=== PATIENT | female | born 1965 | race Caucasian/White ===

== ENCOUNTER → 2016-05-11 | Outpatient (CLI) | payer OTHER ==
[~2016-05-11] MED LIST: AMT24 PO; ATOR-54 PO; BECL1AER5 NAE; CLB100 PO; LEVO5TAB2 PO; MULT-663 PO; NXM/40 PO; TOPI100T20 PO
--- NOTE | 2016-05-11 09:34 | DIAGNOSTIC IMAGING REPORT ---
CERVICAL SPINE 6 VIEWS HISTORY: Pain BREAST CANCER ?ABNORMALITY IN THE CSP INE C2 ON ... COMPARISON: None. FINDINGS: Mild straightening of the normal cervical curvature. There is no fracture. No subluxation. Minimal degenerative disc change C5-C6 Prevertebral soft tissues and the atlantodens interval are intact. No abnormality at the C1-C2 complex. IMPRESSION: Minimal degenerative change. Mild muscle spasm. No abnormality identified at C1-C2 complex Electronically signed by: Crsipin Bahena M.D. 05/11/2016 9:32 AM Dictated Date/Time: 05/11/2016 9:30 AM
--- NOTE | 2016-05-11 09:39 | DIAGNOSTIC IMAGING REPORT ---
LUMBAR SPINE 5 VIEWS HISTORY: Back pain. BREAST CANCER ? ABNORMALITY IN CSP INE COMPARISON: Abdomen and pelvis CT 10/05/2006. FINDINGS: There is no fracture. No subluxation. Disc spaces are preserved. S1 is noted to be a transitional vertebra. No suspicious lytic or blastic osseous lesions within the lumbar spine. Stable 6 mm sclerotic focus within the left iliac wing likely represents a bone island given the long-term stability. Minimal dextroscoliosis IMPRESSION: No fracture or subluxation within the lumbar spine. Minimal dextroscoliosis. Electronically signed by: Mario Laird M.D. 05/11/2016 9:37 AM Dictated Date/Time: 05/11/2016 9:31 AM
--- NOTE | 2016-05-11 09:42 | DIAGNOSTIC IMAGING REPORT ---
THORACIC SPINE 3 VIEWS ROUTINE CLINICAL HISTORY: Breast cancer. Abnormality in the cervical spine. COMPARISON STUDY: PET/CT June 05, 2007. FINDINGS: There is mild leftward curvature of the thoracic spine. Vertebral body heights are maintained. No fracture or osseous lesion is identified within the thoracic spine by radiography. A calcified left upper lobe granuloma is incidentally noted. There are left breast surgical clips. Mild multilevel degenerative disc disease is present. IMPRESSION: 1. No thoracic spine fracture or osseous lesion identified by radiography. 2. Mild multilevel degenerative disc disease of the thoracic spine. Electronically signed by: Grupo Dhillon M.D. 05/11/2016 9:40 AM Dictated Date/Time: 05/11/2016 9:35 AM
== END | disposition home or self-care (01) ==
LOC: C.RAD 08:24
PROVIDERS: ATTEND Nurse Practitioner Family
DX: C50.919 Malignant neoplasm of unspecified site of unspecified female breast (principal)

== ENCOUNTER → 2016-08-04 | Outpatient (CLI) | payer OTHER ==
[~2016-08-04] MED LIST changes: +LEVO-371 PO; -LEVO5TAB2 PO
--- NOTE | 2016-08-04 15:22 | MAMMOGRAPHY REPORT ---
UNILATERAL RIGHT DIGITAL SCREENING MAMMOGRAM TOMOSYNTHESIS WITH CAD: 08/04/2016 CLINICAL HISTORY: Asymptomatic. Personal history of breast cancer. TECHNIQUE: Breast tomosynthesis in addition to standard 2D mammography was performed. Current study was also evaluated with a Computer Aided Detection (CAD) system. Right CC and MLO 2D and tomosynthes is images were obtained. COMPARISON: Comparison is made to exams dated: 08/02/2015 mammogram, 07/10/2014 mammogram, 07/09/2013 dheeraj mogram, 06/27/2012 mammogram, 09/12/2011 mammogram, and 09/09/2010 mammogram - [facility] BREAST COMPOSITION: There are scattered areas of fibroglandular density in the right breast. FINDINGS: No suspicious masses, calcifications, or areas of architectural distortion are noted within the right breast. There has been no significant interval change compared to prior exams. IMPRESSION: ACR BI-RADS CATEGORY 1: NEGATIVE There is no mammographic evidence of malignancy. A 1 year screening mammogram is recommended. The pa tient will receive written notification of the results. Approximately 10% of breast cancers are not detected with mammography. A negative mammographic report should not delay biopsy if a clinically suggestive mass is present. Linda Alicea M.D. ah/:08/04/2016 12:25:18 Hospital Security Officer: Crissy SCRUGGS(Kiana)(M), [facility] letter sent: Normal 1/2 BI-RADS Code: ACR BI-RADS Category 1: Negative
== END | disposition home or self-care (01) ==
LOC: C.MAMM 09:56
PROVIDERS: ATTEND Obstetrics & Gynecology
DX: Z12.31 Encounter for screening mammogram for malignant neoplasm of breast (principal); Z85.3 Personal history of malignant neoplasm of breast; Z90.12 Acquired absence of left breast and nipple

== ENCOUNTER → 2016-11-08 | Outpatient (CLI) | payer OTHER ==
[2016-11-08 09:30] LABS: BASO % 0.2 %; BASO ABS # 0.02 K/uL (0-0.2); COMPLETE YES; EOS % 8.4 %; HEMATOCRIT 39.2 % (37-47); IG% 0.2 %; LYMPH % 36.2 %; LYMPH ABS # 3.07 K/uL (1.2-3.4); MEAN CORPUSCULAR HEMOGLOBIN 30.2 pg (25-34); MEAN CORPUSCULAR HGB CONC 33.2 g/dl (32-36); MEAN PLATELET VOLUME 10.2 fL (7.4-10.4); MONO % 5.7 %; NEUT % 49.3 %; PLATELET COUNT 281 K/uL (130-400); RED BLOOD COUNT 4.31 M/uL (4.2-5.4); WHITE BLOOD COUNT 8.48 K/uL (4.8-10.8)
[2016-11-08 09:52] LABS: ALT/SGPT 34 U/L (12-78); AST/SGOT 19 U/L (15-37); BLOOD UREA NITROGEN 13 mg/dl (7-18); BUN/CREATININE RATIO 12.1 (10-20); CALCIUM 9.6 mg/dl (8.5-10.1); CARBON DIOXIDE 27 mmol/L (21-32); CHLORIDE 106 mmol/L (98-107); CHOLESTEROL 186 mg/dl (0-200); GLUCOSE 105 mg/dl (70-99); MAGNESIUM 2.1 mg/dl (1.8-2.4); POTASSIUM 3.7 mmol/L (3.5-5.1); SODIUM 143 mmol/L (136-145)
[2016-11-08 09:56] LABS: ALKALINE PHOSPHATASE 153 U/L (45-117); HDL CHOLESTEROL 46 mg/dl; LDL CHOLESTEROL CALCULATED 92 mg/dl; TRIGLYCERIDES 240 mg/dl (0-150); VERY LOW DENSITY LIPOPROT CALC 48 mg/dl
== END | disposition home or self-care (01) ==
LOC: C.LAB 08:18
PROVIDERS: ATTEND Nurse Practitioner Family
DX: K21.9 Gastro-esophageal reflux disease without esophagitis (principal); M85.80 Other specified disorders of bone density and structure, unspecified site; E78.5 Hyperlipidemia, unspecified; E53.8 Deficiency of other specified B group vitamins; K22.70 Barrett's esophagus without dysplasia; K58.9 Irritable bowel syndrome, unspecified; J45.909 Unspecified asthma, uncomplicated

== ENCOUNTER → 2017-03-26 | Day surgery (SDC) | payer OTHER ==
[2017-03-09 07:40] VITALS: Ht 159.4 cm; Wt 79.5 kg
[~2017-03-26] VITALS: Ht 159.4 cm; Wt 79.5 kg
[~2017-03-26] MED LIST changes: -ATOR-54 PO; -BECL1AER5 NAE; +CHOL1000 PO; -CLB100 PO; +CLR/5 PO; +CYAN10005 PO; +FENTANYL CITRATE INJ 50 MCG/1 ML 2 ML VIAL ONE; -LEVO-371 PO; +LIDOCAINE HCL 2% 2 ML VIAL (20MG/ML) ONE; -MULT-663 PO; +PROPOFOL IV EMULSION 10 MG/ML 20 ML VIAL IV ONE; +SIMV20TA5 PO; +SODIUM CHLORIDE 0.9% 500ML 500 ML IV ONE; -TOPI100T20 PO; +VNTHFA/IN INH
--- NOTE | 2017-03-26 09:10 | Endo History and Physical ---
History & Physical Date of Service: Mar 26, 2017. Chief Complaint: Mora's Referring Physician: BALTAZAR Keys III History of Present Illness 51 yo CF who presents for EGD secondary to Mora's Esophagus. Past Medical History Gastrointestinal Disorder, Reflux, Cancer, High Cholesterol Past Surgical History Hx Cardiac Surgery: No Hx Internal Defibrillator: No Hx Pacemaker: No Hx Abdominal Surgery: Yes (PARTIAL HYSTER, BLT OOPHORECTOMY AND REVISION) Hx of Implantable Prosthesis: No Hx Post-Op Nausea and Vomiting: No Hx Cancer Surgery: Yes (LT BREAST MASTECTOMY WITH TRAM FLAP RECONSTRUCTION) Hx Thoracic Surgery: No Hx Orthopedic: No Hx Urinary Tract Surgery: No Family History Esophogeal CA, IBD Social History Smoking Status: Never Smoker Hx Substance Use: No Hx Alcohol Use: No Allergies Coded Allergies: Alcohol (Verified Allergy, Unknown, "JOINT PAIN AND SKIN GETS BLOTCHY", 03/09/17) Quinolones (Verified Allergy, Unknown, FLOXIN - ITCHING, 03/09/17) Uncoded Allergies: STERI STRIPS (Allergy, Mild, BLISTER, 05/04/03) CATS AND DOGS (Allergy, Unknown, ., 01/05/15) Current Medications Reported Home Medications Medications Dose Route/Sig Max Daily Dose Days Date Category Ventolin Hfa (Albuterol) 200 Puffs/33323 Mcg Aers 2-4 Puffs INH Q6H PRN 03/09/17 Reported Vitamin B-12 (Cyanocobalamin) 1,000 Mcg Tab 1,000 Mcg PO DAILY 03/09/17 Reported Vitamin D3 (Cholecalciferol) 1,000 Unit Tab 1 Tab PO BID 03/09/17 Reported Zocor (Simvastatin) 20 Mg Tab 20 Mg PO QPM 03/09/17 Reported Clarinex (Desloratadine) 5 Mg Tab 5 Mg PO QAM 03/09/17 Reported Amitiza (Lubiprostone) 24 Mcg Cap 24 Mcg PO BID 08/25/13 Reported Nexium (Esomeprazole Magnesium) 40 Mg Capcr 40 Mg PO BID 03/19/12 Reported Vital Signs Weight (Kilograms): 79.55 Height (Feet): 5 Height (Inches): 2.75 Date Time Temp Pulse Resp B/P (MAP) Pulse Ox O2 Delivery O2 Flow Rate FiO2 03/26/17 09:03 36.7 95 20 113/92 (99) 93 Room Air Physical Exam General Appearance: WD/WN, no apparent distress Respiratory/Chest: Auscultation: breath sounds normal Cardiovascular: Heart Auscultation: RRR Abdomen: Bowel Sounds: normal Inspection & Palpation: soft, non-distended, no tenderness, guarding & rebound Assessment and Plan Assessment: 51 yo CF who presents for EGD secondary to Mora's Esophagus. Plan: Proceed with EGD.
--- NOTE | 2017-03-26 09:33 | GI REPORT ---
Procedure Date: 03/26/2017 9:09 AM Procedure: Upper GI endoscopy Indications: Follow-up of Mora's esophagus Medicines: Monitored Anesthesia Care Complications: No immediate complications. Estimated Blood Loss: Estimated blood loss: none. Procedure: Pre-Anesthesia Assessment: - Prior to the procedure, a History and Physical was performed, and patient medications and allergies were reviewed. The patient's tolerance of previous anesthesia was also reviewed. The risks and benefits of the procedure and the sedation options and risks were discussed with the patient. All questions were answered, and informed consent was obtained. Prior Anticoagulants: The patient has taken no previous anticoagulant or antiplatelet agents. ASA Grade Assessment: II - A patient with mild systemic disease. After reviewing the risks and benefits, the patient was deemed in satisfactory condition to undergo the procedure. After obtaining informed consent, the endoscope was passed under direct vision. Throughout the procedure, the patient's blood pressure, pulse, and oxygen saturations were monitored continuously. The scope was introduced through the mouth, and advanced to the second part of duodenum. The upper GI endoscopy was accomplished without difficulty. The patient tolerated the procedure well. Findings: There were esophageal mucosal changes consistent with short-segment Mora's esophagus present at the gastroesophageal junction. The maximum longitudinal extent of these mucosal changes was 2 cm in length. Mucosa was biopsied with a cold forceps for histology. One specimen bottle was sent to pathology. A small hiatal hernia was present. Localized mild inflammation was found in the gastric antrum. Biopsies were taken with a cold forceps for histology. The examined duodenum was normal. Impression: - Esophageal mucosal changes consistent with short-segment Mora's esophagus. Biopsied. - Small hiatal hernia. - Gastritis. Biopsied. - Normal examined duodenum. Recommendation: - Resume previous diet. - Continue present medications. - Await pathology results. - Return to primary care physician as previously scheduled. Walter Suh, DO 03/26/2017 9:33:11 AM This report has been signed electronically. Note Initiated On: 03/26/2017 9:09 AM I attest to the content of the Intraoperative Record and orders documented therein, exceptions below
--- NOTE | 2017-03-26 09:34 | Discharge Instructions ---
Endoscopy Patient Instructions Date / Procedure(s) Performed Mar 26, 2017. EGD Allergy Information Coded Allergies: Alcohol (Verified Allergy, Unknown, "JOINT PAIN AND SKIN GETS BLOTCHY", 03/09/17) Quinolones (Verified Allergy, Unknown, FLOXIN - ITCHING, 03/09/17) Uncoded Allergies: STERI STRIPS (Allergy, Mild, BLISTER, 05/04/03) CATS AND DOGS (Allergy, Unknown, ., 01/05/15) Discharge Date / Findings Mar 26, 2017. Mora's Esophagus s/p biopsies Hiatal hernia Gastritis s/p biopsies Medication Instructions OK to resume all medications today as prescribed Reported Home Medications Medications Dose Route/Sig Max Daily Dose Days Date Category Ventolin Hfa (Albuterol) 200 Puffs/94434 Mcg Aers 2-4 Puffs INH Q6H PRN 03/09/17 Reported Vitamin B-12 (Cyanocobalamin) 1,000 Mcg Tab 1,000 Mcg PO DAILY 03/09/17 Reported Vitamin D3 (Cholecalciferol) 1,000 Unit Tab 1 Tab PO BID 03/09/17 Reported Zocor (Simvastatin) 20 Mg Tab 20 Mg PO QPM 03/09/17 Reported Clarinex (Desloratadine) 5 Mg Tab 5 Mg PO QAM 03/09/17 Reported Amitiza (Lubiprostone) 24 Mcg Cap 24 Mcg PO BID 08/25/13 Reported Nexium (Esomeprazole Magnesium) 40 Mg Capcr 40 Mg PO BID 03/19/12 Reported Provider Instructions Activity Restrictions - No exercising or heavy lifting for 24 hours. - Do not drink alcohol the day of the procedure. - Do not drive a car or operate machinery until the day after the procedure. - Do not make any important decisions or sign important papers in 24 hours after the procedure. Following Day: - Return to full activity which may include returning to work/school. Diet Start your diet with liquids and light foods (jello, soup, juice, toast). Then eat your usual diet if not nauseated. Treatment For Common After Affects For mild abdominal pain, bloating, or excessive gas: - Rest - Eat lightly - Lie on right side Follow-Up Information Follow-up with BALTAZAR Keys III as scheduled Anesthesia Information What You Should Know You have had a procedure that required some medicine to reduce anxiety and discomfort. This treatment is called moderate sedation. After receiving the treatment, you may be sleepy, but you will be able to breathe on your own. The effects of the treatment may last for several hours. Follow these instructions along with Activity/Diet recommendations noted above: * Do NOT do anything where dizziness or clumsiness would be dangerous. * Rest quietly at home today, then you can be up and about tomorrow. * Have a responsible person stay with you the rest of today. * You may have had an I.V. today. If so, you may take the dressing off later today. Recommendations Call your doctor if: * Trouble breathing * Continuous vomiting for more than 24 hours * Temperature above 101 degrees * Severe abdominal pain or bloating * Pain not relieved by pain medicine ordered * There is increased drainage or redness from any incision * A large amount of rectal bleeding greater than 2-3 tablespoons. (If you had a polyp/s removed or have hemorrhoids, a small amount of blood - from the rectum is to be expected.) * You have any unanswered questions or concerns. IN THE EVENT OF A SERIOUS EMERGENCY, GO TO THE NEAREST EMERGENCY ROOM Your discharge instructions were prepared by provider Walter Suh. Patient Instructions Signature Page Briana Starr Patient (or Guardian) Signature/Date: I have read and understand the instructions given to me by my caregivers. Caregiver/RN/Doctor Signature/Date: The above-named patient and/or guardian has received patient instructions on this date. + Original Patient Signature Page (only) stays with chart. Please make copy for patient.
--- NOTE | 2017-03-26 09:58 | Anesthesiology Progress Note ---
Anesthesia Post Op Note Date & Time Mar 26, 2017 at 09:58 Vital Signs Pain Intensity: 0 Vital Signs Past 12 Hours Date Time Temp Pulse Resp B/P (MAP) Pulse Ox O2 Delivery O2 Flow Rate FiO2 03/26/17 09:49 94 16 107/64 (78) 97 Room Air 03/26/17 09:34 107 75 112/92 (99) 93 Room Air 03/26/17 09:03 36.7 95 20 113/92 (99) 93 Room Air Notes Mental Status: alert / awake / arousable, participated in evaluation Pt Amnestic to Procedure: Yes Nausea / Vomiting: adequately controlled Pain: adequately controlled Airway Patency, RR, SpO2: stable & adequate BP & HR: stable & adequate Hydration State: stable & adequate Anesthetic Complications: no major complications apparent
[2017-03-26 10:06] VITALS: BP 133/81; PULSE 92; O2SAT 97
== END | disposition home or self-care (01) ==
LOC: C.GI 08:39
PROVIDERS: ATTEND Internal Medicine
DX: K22.70 Barrett's esophagus without dysplasia (principal); K44.9 Diaphragmatic hernia without obstruction or gangrene; K21.0 Gastro-esophageal reflux disease with esophagitis; Z88.8 Allergy status to other drugs, medicaments and biological substances; Z79.899 Other long term (current) drug therapy

== ENCOUNTER → 2017-05-04 | Outpatient (CLI) | payer OTHER ==
[~2017-05-04] MED LIST changes: -FENTANYL CITRATE INJ 50 MCG/1 ML 2 ML VIAL ONE; -LIDOCAINE HCL 2% 2 ML VIAL (20MG/ML) ONE; -PROPOFOL IV EMULSION 10 MG/ML 20 ML VIAL IV ONE; -SODIUM CHLORIDE 0.9% 500ML 500 ML IV ONE
[2017-05-04 10:32] LABS: ALBUMIN 4.2 gm/dl (3.4-5.0); ALT/SGPT 29 U/L (12-78); BLOOD UREA NITROGEN 21 mg/dl (7-18); CALCIUM 9.5 mg/dl (8.5-10.1); CARBON DIOXIDE 28 mmol/L (21-32); CHOLESTEROL 217 mg/dl (0-200); CREATININE 1.14 mg/dl (0.60-1.20); GLUCOSE 99 mg/dl (70-99); POTASSIUM 3.7 mmol/L (3.5-5.1); SODIUM 139 mmol/L (136-145)
[2017-05-04 10:35] LABS: ALKALINE PHOSPHATASE 148 U/L (45-117); AST/SGOT 20 U/L (15-37); LDL CHOLESTEROL CALCULATED 111 mg/dl
== END | disposition home or self-care (01) ==
LOC: C.LAB 08:18
PROVIDERS: ATTEND Nurse Practitioner Family
DX: M85.80 Other specified disorders of bone density and structure, unspecified site (principal); E53.8 Deficiency of other specified B group vitamins; E78.5 Hyperlipidemia, unspecified

== ENCOUNTER → 2017-05-14 | Outpatient (CLI) | payer OTHER | END | disposition home or self-care (01) | LOC: C.LAB 14:34 | PROVIDERS: ATTEND Nurse Practitioner Family | DX: L67.8 Other hair color and hair shaft abnormalities (principal) ==